=== PATIENT | male | born 1995 | race Caucasian/White ===

== ENCOUNTER 2017-07-12 21:24 | Emergency (ER) | payer OTHER ==
[~2017-07-12 21:24] MED LIST: DIPH50TA PO; DOXY100T PO; FEXO180 PO; MONT10TA2 PO; SULF-154 PO
[2017-07-12 21:26] VITALS: BP 161/92; PULSE 71; RESP 16; TEMP 98.2; O2SAT 98
== END 2017-07-12 22:10 | disposition left against medical advice (07) ==
LOC: NED 21:24
DX: Z53.21 Procedure and treatment not carried out due to patient leaving prior to being seen by health care provider (principal)
CPT/HCPCS: 99281